=== PATIENT | female | born 1990 | race Caucasian/White ===

== ENCOUNTER 2022-11-25 07:03 | Outpatient (CLI) | payer OTHER, SELFPAY ==
--- NOTE | 2022-11-25 07:15 | CRLHL7_ITS ---
For Patients: As a result of the Cures Act, medical imaging exams and procedure reports are released immediately into your electronic medical record. You may view this report before your referring provider. If you have questions, please contact your health care provider. CLINICAL HISTORY: First trimester screening. Last menstrual. August 31, 2022. TECHNIQUE: Real time benoit scale imaging of the fetus was performed using a transabdominal approach. FINDINGS: Sonographic imaging demonstrates a single living intrauterine gestation. The fetus demonstrates a regular cardiac rate measuring 165 beats per minute. The crown rump length measurement of 5.7 cm corresponds to a gestation of 12 weeks 2 days with an estimated sonographic due date of June 07, 2023. Normal-appearing gestational sac. Normal-appearing yolk sac measuring 5 mm. Normal sized ovaries with the right measuring 2.7 x 1.1 x 1.9 cm and the left measuring 4.3 x 2.3 x 2.1 cm. Corpus luteum cyst of on the left. A nuchal translucency measurement of 1.9 mm was obtained for screening purposes. IMPRESSION: Nuchal translucency measurement obtained for first trimester screen. Dictated by Saeed Britt MD @ 11/26/2022 11:58:16 AM (Electronically Signed)
== END 2022-11-25 07:04 | disposition home or self-care (01) ==
PROVIDERS: PCP Family Medicine; Visit Provider Family Medicine
DX: Z34.91 Encounter for supervision of normal pregnancy, unspecified, first trimester (principal); Z3A.12 12 weeks gestation of pregnancy
CPT/HCPCS: 36415; 76801; 76813; 84163; 84702